=== PATIENT | female | born 1985 | race African-American/Black ===

== ENCOUNTER 2022-03-01 20:31 | Inpatient (IN) | payer OTHER ==
[2022-03-01] MEDS ORDERED: FUROSEMIDE 40 MG/4 ML INJECTABLE VIAL IVPUSH ONE (21:35)
[2022-03-01] MEDS ORDERED: ACETAMINOPHEN 1000 MG/100 ML BAG IVPB ONE (21:36)
[2022-03-01] MEDS: ALBUTEROL SO4 2.5/IPRATROPIUM 0.5 INH SOL 3 ML VIAL.NEB. NEB SCH ×3 (21:54→22:16)
[2022-03-01] MEDS ORDERED: FUROSEMIDE 40 MG/4 ML INJECTABLE VIAL ONE (21:55)
[2022-03-01] MEDS ORDERED: ACETAMINOPHEN INJECTION 100 ML IVPB ONE (21:59)
[2022-03-01] MEDS ORDERED: ALBUTEROL SO4 2.5/IPRATROPIUM 0.5 INH SOL 3 ML VIAL.NEB. NEB ONE (21:59)
[2022-03-01 22:43] LABS: BASO % 0.2 % (0-2.0); EOS % 2.6 % (0-4.5); HEMATOCRIT 43.4 % (32.4-45.2); LYMPH % 8.5 % (8-40); MCH 26.4 pg (25.7-33.7); MCHC 32.3 g/dl (32.0-36.0); MEAN CELL VOLUME 81.8 fl (80-96); MEAN PLT VOLUME 8.6 fl (7.5-11.1); MONO % 5.5 % (3.8-10.2); NEUT % 83.2 % (42.8-82.8); PLATELET COUNT 243 10^3/uL (134-434); RBC 5.31 M/mm3 (3.60-5.2); RDW 16.4 % (11.6-15.6); WHITE BLOOD COUNT 9.9 K/mm3 (4.0-10.0)
[2022-03-01 23:01] LABS: CALCIUM 8.7 mg/dL (8.5-10.1)
[2022-03-01 23:02] LABS: ALBUMIN 3.1 g/dl (3.4-5.0); BLOOD UREA NITROGEN 15.2 mg/dL (7-18)
[2022-03-01 23:05] LABS: CREATININE 1.7 mg/dL (0.55-1.3)
[2022-03-01 23:07] LABS: BILIRUBIN,TOTAL 0.4 mg/dL (0.2-1); TOT PROT 7.8 g/dl (6.4-8.2)
[2022-03-01] MEDS ORDERED: amLODIPine BESYLATE 10 MG TABLET (FP) PO ONE (23:51)
[2022-03-01] MEDS ORDERED: methylPREDNISolone NA SUCC 125 MG/2 ML VIAL IVPB ONE (23:51)
[2022-03-01] MEDS ORDERED: ALBUTEROL SO4 0.083% IH SOL 2.5 MG/3 ML VIAL.NEB. NEB ONE (23:51)
[2022-03-02] MEDS ORDERED: ALBUTEROL SO4 2.5/IPRATROPIUM 0.5 INH SOL 3 ML VIAL.NEB. NEB ONE ×3 (00:35→08:25)
[2022-03-02] MEDS ORDERED: amLODIPine BESYLATE 10 MG TABLET (FP) ONE ×2 (00:35→08:51)
[2022-03-02] MEDS ORDERED: methylPREDNISolone NA SUCC 125 MG/2 ML VIAL ONE (00:36)
[2022-03-02] MEDS ORDERED: AZITHROMYCIN 250 MG TABLET PO ONE (02:38)
[2022-03-02] MEDS ORDERED: ALBUTEROL SO4 2.5/IPRATROPIUM 0.5 INH SOL 3 ML VIAL.NEB. NEB PRN (02:46)
[2022-03-02] MEDS ORDERED: AZITHROMYCIN 500 MG TABLET ONE (05:52)
[2022-03-02] MEDS ORDERED: HEPARIN NA (PORCINE) 5,000 UNITS/ML 1ML VIAL ONE (05:53)
[2022-03-02] MEDS ORDERED: HEPARIN NA (PORCINE) 5,000 UNITS/ML 1ML VIAL SQ SCH (06:00)
[2022-03-02 07:09] LABS: HEMATOCRIT 44.5 % (32.4-45.2); HEMOGLOBIN 14.4 GM/dL (10.7-15.3); MCH 26.6 pg (25.7-33.7); MCHC 32.3 g/dl (32.0-36.0); MEAN CELL VOLUME 82.3 fl (80-96); MEAN PLT VOLUME 8.6 fl (7.5-11.1); PLATELET COUNT 235 10^3/uL (134-434); RDW 16.6 % (11.6-15.6); WHITE BLOOD COUNT 9.5 K/mm3 (4.0-10.0)
[2022-03-02 07:22] LABS: ALBUMIN 3.2 g/dl (3.4-5.0); BLOOD UREA NITROGEN 17.9 mg/dL (7-18); MAGNESIUM 2.2 mg/dL (1.8-2.4)
[2022-03-02 07:24] LABS: PHOSPHOROUS 3.1 mg/dL (2.5-4.9)
[2022-03-02 07:25] LABS: CREATININE 1.7 mg/dL (0.55-1.3)
[2022-03-02 07:26] LABS: BILIRUBIN,TOTAL 0.4 mg/dL (0.2-1); TOT PROT 8.2 g/dl (6.4-8.2)
[2022-03-02] MEDS ORDERED: hydrALAZINE HCL 20 MG/ML VIAL IVPUSH ONE (08:43)
[2022-03-02 08:48] LABS: ANISOCYTOSIS 0; HELMET CELLS 0; HOWELL-JOLLY BODIES 0; MACROCYTOSIS 0; OVALOCYTE 0; ROULEAU 0; SICKELED CELLS 0; TARGET CELLS 0; TEAR DROP CELLS 0; TOXIC GRANULATION 0
[2022-03-02] MEDS ORDERED: hydrALAZINE HCL 20 MG/ML VIAL ONE (08:48)
[2022-03-02] MEDS ORDERED: hydrALAZINE HCL 50 MG TABLET (FP) ONE (08:51)
[2022-03-02] MEDS ORDERED: FUROSEMIDE 40 MG/4 ML INJECTABLE VIAL ONE (08:52)
[2022-03-02] MEDS ORDERED: methylPREDNISolone NA SUCC 40 MG/1 ML VIAL ONE (08:52)
[2022-03-02] MEDS: methylPREDNISolone NA SUCC 40 MG/1 ML VIAL IVPUSH SCH ×2 (09:10→17:41)
[2022-03-02] MEDS: hydrALAZINE HCL 50 MG TABLET (FP) PO SCH ×2 (09:10→22:04)
[2022-03-02] MEDS: amLODIPine BESYLATE 10 MG TABLET (FP) PO SCH (09:10)
[2022-03-02] MEDS ORDERED: FUROSEMIDE 40 MG/4 ML INJECTABLE VIAL IVPUSH SCH (10:00)
[2022-03-02] MEDS ORDERED: AZITHROMYCIN 250 MG TABLET PO SCH (10:00)
[2022-03-02] MEDS ORDERED: hydrALAZINE HCL 25 MG TABLET (FP) PO SCH (10:00)
[2022-03-02] MEDS ORDERED: ENOXAPARIN NA (PORCINE) 100 MG/1 ML DISP.SYRIN SQ ONE (10:29)
[2022-03-02] MEDS: ENOXAPARIN NA (PORCINE) 100 MG/1 ML DISP.SYRIN SQ SCH ×2 (10:38→22:04)
[2022-03-02] MEDS ORDERED: ALBUTEROL SO4 0.083% IH SOL 2.5 MG/3 ML VIAL.NEB. NEB PRN (12:44)
[2022-03-02] MEDS: ALBUTEROL SO4 2.5/IPRATROPIUM 0.5 INH SOL 3 ML VIAL.NEB. NEB SCH ×2 (13:01→20:10)
[2022-03-02 15:18] VITALS: BMI 36.6
[2022-03-02] MEDS: MONTELUKAST NA 10 MG TABLET PO SCH (22:04)
[2022-03-02] MEDS: MOMETASONE FUROATE 220 MCG/IH INHALER IH SCH (22:39)
[2022-03-03] MEDS: methylPREDNISolone NA SUCC 40 MG/1 ML VIAL IVPUSH SCH ×4 (02:52→22:08)
[2022-03-03] MEDS: ALBUTEROL SO4 2.5/IPRATROPIUM 0.5 INH SOL 3 ML VIAL.NEB. NEB SCH ×3 (07:45→20:02)
[2022-03-03] MEDS: hydrALAZINE HCL 50 MG TABLET (FP) PO SCH ×5 (07:45→16:56)
[2022-03-03] MEDS: amLODIPine BESYLATE 10 MG TABLET (FP) PO SCH ×2 (07:46→11:21)
[2022-03-03 08:12] LABS: HEMATOCRIT 45.6 % (32.4-45.2); MCH 25.8 pg (25.7-33.7); MCHC 30.8 g/dl (32.0-36.0); MEAN CELL VOLUME 83.7 fl (80-96); MEAN PLT VOLUME 9.5 fl (7.5-11.1); PLATELET COUNT 280 10^3/uL (134-434); RBC 5.44 M/mm3 (3.60-5.2); RDW 16.6 % (11.6-15.6); WHITE BLOOD COUNT 16.9 K/mm3 (4.0-10.0)
[2022-03-03 09:06] LABS: ALBUMIN 3.1 g/dl (3.4-5.0); CALCIUM 9.3 mg/dL (8.5-10.1); MAGNESIUM 2.5 mg/dL (1.8-2.4)
[2022-03-03 09:09] LABS: CREATININE 2.2 mg/dL (0.55-1.3)
[2022-03-03 09:11] LABS: BILIRUBIN,TOTAL 0.2 mg/dL (0.2-1); TOT PROT 8.2 g/dl (6.4-8.2)
[2022-03-03] MEDS ORDERED: ACETAMINOPHEN 325 MG TABLET (FP) PO PRN (09:12)
[2022-03-03] MEDS ORDERED: FUROSEMIDE 40 MG TABLET (FP) PO SCH (10:00)
[2022-03-03 10:14] LABS: ANISOCYTOSIS 0; HELMET CELLS 0; HOWELL-JOLLY BODIES 0; MACROCYTOSIS 0; OVALOCYTE 0; ROULEAU 0; SICKELED CELLS 0; TARGET CELLS 0; TEAR DROP CELLS 0; TOXIC GRANULATION 0
[2022-03-03] MEDS: ENOXAPARIN NA (PORCINE) 40 MG/0.4 ML DISP.SYRIN SQ SCH (11:06)
[2022-03-03] MEDS: AZITHROMYCIN IVPB 500 MG/250 ML BAG IVPB SCH (11:07)
[2022-03-03] MEDS ORDERED: BUDESONIDE/FORMETEROL FUMARATE 80/4.5 mcg INHALER IH SCH (11:30)
[2022-03-03] MEDS: MOMETASONE FUROATE 220 MCG/IH INHALER IH SCH (22:10)
[2022-03-03] MEDS: MONTELUKAST NA 10 MG TABLET PO SCH (22:13)
[2022-03-04] MEDS ORDERED: FAMOTIDINE 20 MG/50 ML IVPB 20 MG/50 ML MG IVPB ONE ×2 (02:26→03:45)
[2022-03-04] MEDS: methylPREDNISolone NA SUCC 40 MG/1 ML VIAL IVPUSH SCH ×4 (03:53→22:48)
[2022-03-04] MEDS: hydrALAZINE HCL 50 MG TABLET (FP) PO SCH ×3 (06:24→22:48)
[2022-03-04] MEDS: ALBUTEROL SO4 2.5/IPRATROPIUM 0.5 INH SOL 3 ML VIAL.NEB. NEB SCH ×3 (07:25→20:08)
[2022-03-04 07:55] LABS: HEMATOCRIT 43.7 % (32.4-45.2); HEMOGLOBIN 13.5 GM/dL (10.7-15.3); MCH 25.6 pg (25.7-33.7); MEAN CELL VOLUME 82.5 fl (80-96); MEAN PLT VOLUME 9.5 fl (7.5-11.1); PLATELET COUNT 282 10^3/uL (134-434); RBC 5.29 M/mm3 (3.60-5.2); RDW 16.9 % (11.6-15.6); WHITE BLOOD COUNT 19.1 K/mm3 (4.0-10.0)
[2022-03-04 08:42] LABS: ALBUMIN 2.9 g/dl (3.4-5.0); CALCIUM 8.8 mg/dL (8.5-10.1); MAGNESIUM 2.6 mg/dL (1.8-2.4)
[2022-03-04 08:45] LABS: CREATININE 2.2 mg/dL (0.55-1.3)
[2022-03-04 08:47] LABS: BILIRUBIN,TOTAL 0.2 mg/dL (0.2-1); TOT PROT 7.5 g/dl (6.4-8.2)
[2022-03-04 08:53] LABS: ANISOCYTOSIS 0; HELMET CELLS 0; HOWELL-JOLLY BODIES 0; MACROCYTOSIS 0; OVALOCYTE 0; ROULEAU 0; SICKELED CELLS 0; TARGET CELLS 0; TEAR DROP CELLS 0; TOXIC GRANULATION 0
[2022-03-04] MEDS: AZITHROMYCIN IVPB 500 MG/250 ML BAG IVPB SCH (09:54)
[2022-03-04] MEDS: ENOXAPARIN NA (PORCINE) 40 MG/0.4 ML DISP.SYRIN SQ SCH (09:54)
[2022-03-04] MEDS: amLODIPine BESYLATE 10 MG TABLET (FP) PO SCH (09:55)
[2022-03-04] MEDS: TIOTROPIUM BROMIDE 2.5 MCG (SPIRIVA) RESPIMAT INHALER IH SCH (10:17)
[2022-03-04] MEDS: PANTOPRAZOLE 40 MG TABLET PO SCH (14:30)
[2022-03-04] MEDS: MONTELUKAST NA 10 MG TABLET PO SCH (22:47)
[2022-03-04] MEDS: MOMETASONE FUROATE 220 MCG/IH INHALER IH SCH (22:56)
[2022-03-05] MEDS: methylPREDNISolone NA SUCC 40 MG/1 ML VIAL IVPUSH SCH ×3 (03:21→15:07)
[2022-03-05] MEDS: hydrALAZINE HCL 50 MG TABLET (FP) PO SCH ×2 (06:27→14:23)
[2022-03-05 06:32] VITALS: RESP 20
[2022-03-05 07:44] LABS: CALCIUM 8.6 mg/dL (8.5-10.1)
[2022-03-05 07:46] LABS: MAGNESIUM 2.7 mg/dL (1.8-2.4)
[2022-03-05 07:47] LABS: ALBUMIN 2.7 g/dl (3.4-5.0); BLOOD UREA NITROGEN 43.4 mg/dL (7-18); HEMATOCRIT 41.8 % (32.4-45.2); MCH 25.9 pg (25.7-33.7); MEAN CELL VOLUME 83.5 fl (80-96); MEAN PLT VOLUME 9.2 fl (7.5-11.1); PLATELET COUNT 228 10^3/uL (134-434)
[2022-03-05 07:50] LABS: BILIRUBIN,TOTAL 0.3 mg/dL (0.2-1); TOT PROT 6.7 g/dl (6.4-8.2)
[2022-03-05] MEDS: ALBUTEROL SO4 2.5/IPRATROPIUM 0.5 INH SOL 3 ML VIAL.NEB. NEB SCH ×2 (08:25→15:00)
[2022-03-05] MEDS: ENOXAPARIN NA (PORCINE) 40 MG/0.4 ML DISP.SYRIN SQ SCH (09:08)
[2022-03-05] MEDS: AZITHROMYCIN IVPB 500 MG/250 ML BAG IVPB SCH (09:08)
[2022-03-05] MEDS: amLODIPine BESYLATE 10 MG TABLET (FP) PO SCH (09:08)
[2022-03-05] MEDS: PANTOPRAZOLE 40 MG TABLET PO SCH (09:08)
[2022-03-05] MEDS: TIOTROPIUM BROMIDE 2.5 MCG (SPIRIVA) RESPIMAT INHALER IH SCH (10:04)
[2022-03-05 10:35] LABS: ANISOCYTOSIS 0; HELMET CELLS 0; HOWELL-JOLLY BODIES 0; MACROCYTOSIS 0; OVALOCYTE 0; ROULEAU 0; SICKELED CELLS 0; TARGET CELLS 0; TEAR DROP CELLS 0; TOXIC GRANULATION 0
[2022-03-05] MEDS ORDERED: FUROSEMIDE 40 MG TABLET (FP) PO ONE (12:30)
[2022-03-05 15:39] VITALS: BP 149/72; PULSE 79; TEMP 98.8
== END 2022-03-05 18:16 | disposition home or self-care (01) | DRG 202 ==
LOC: JER 20:31 → UNDOADMOB 23:51 → JERBED 23:51 → INTOOBSV 23:51 → J4W 03-02 14:56 → JERBED 03-02 14:56 → J4W 03-02 15:08 → OBSVTOIN 03-04 13:37
PROVIDERS: ADMIT Internal Medicine; ATTEND Nurse Practitioner Family
DX: J45.901 Unspecified asthma with (acute) exacerbation (principal); J96.01 Acute respiratory failure with hypoxia; I13.0 Hypertensive heart and chronic kidney disease with heart failure and stage 1 through stage 4 chronic kidney disease, or unspecified chronic kidney disease; I42.8 Other cardiomyopathies; N17.9 Acute kidney failure, unspecified; I50.22 Chronic systolic (congestive) heart failure; E66.9 Obesity, unspecified; Z68.35 Body mass index [BMI] 35.0-35.9, adult; Z91.14 Patient's other noncompliance with medication regimen; N18.9 Chronic kidney disease, unspecified; F17.210 Nicotine dependence, cigarettes, uncomplicated; J06.9 Acute upper respiratory infection, unspecified; G47.30 Sleep apnea, unspecified; D17.71 Benign lipomatous neoplasm of kidney
CPT/HCPCS: 36415; 71045-TC-FY; 76775-TC; 80053; 82570; 82962; 83735; 84100; 84156; 84300; 84484; 84703; 85025; 85379; 87804; 87807; 93005; 93010; 93306-TC; 93970-TC; 94010; 94150; 94640; 94660; 94761; 99285-25; C9803-CS; G0378; J1644; U0003; U0005

== ENCOUNTER 2023-06-07 08:11 | Inpatient (IN) | payer OTHER ==
[2023-06-07] MEDS ORDERED: methylPREDNISolone NA SUCC 125 MG/2 ML VIAL IVPB ONE (08:38)
[2023-06-07] MEDS ORDERED: ALBUTEROL SO4 2.5/IPRATROPIUM 0.5 INH SOL 3 ML VIAL.NEB. NEB ONE ×7 (08:38→09:55)
[2023-06-07] MEDS ORDERED: methylPREDNISolone NA SUCC 125 MG/2 ML VIAL ONE (08:47)
[2023-06-07 09:05] LABS: BASO % 0.5 % (0-2.0); EOS % 4.8 % (0-4.5); HEMATOCRIT 41.4 % (32.4-45.2); HEMOGLOBIN 14.2 GM/dL (10.7-15.3); LYMPH % 17.7 % (8-40); MCH 31.2 pg (25.7-33.7); MCHC 34.4 g/dl (32.0-36.0); MEAN CELL VOLUME 90.8 fl (80-96); MEAN PLT VOLUME 9.3 fl (7.5-11.1); MONO % 5.6 % (3.8-10.2); NEUT % 71.4 % (42.8-82.8); PLATELET COUNT 190 10^3/uL (134-434); RBC 4.56 M/mm3 (3.60-5.2); RDW 19.2 % (11.6-15.6); WHITE BLOOD COUNT 6.6 K/mm3 (4.0-10.0)
[2023-06-07 09:20] LABS: POTASSIUM 4.1 mmol/L (3.5-5.1)
[2023-06-07 09:22] LABS: CALCIUM 9.3 mg/dL (8.5-10.1)
[2023-06-07 09:23] LABS: BLOOD UREA NITROGEN 18.9 mg/dL (7-18)
[2023-06-07 09:25] LABS: CREATININE 1.9 mg/dL (0.55-1.3)
[2023-06-07 09:27] LABS: BILIRUBIN,TOTAL 0.3 mg/dL (0.2-1); TOT PROT 7.5 g/dl (6.4-8.2)
[2023-06-07 09:31] LABS: N-TERMINAL BNP 816.2 pg/ml (5-125)
[2023-06-07] MEDS ORDERED: MAGNESIUM SULFATE IN WATER 2 GM/50 ML IVPB IVPB ONE ×2 (09:41→10:34)
[2023-06-07] MEDS ORDERED: ALBUTEROL SO4 HFA INHALER IH PRN (13:48)
[2023-06-07] MEDS ORDERED: FUROSEMIDE 40 MG TABLET (FP) ONE (14:08)
[2023-06-07] MEDS ORDERED: amLODIPine BESYLATE 10 MG TABLET (FP) ONE (14:09)
[2023-06-07] MEDS: amLODIPine BESYLATE 10 MG TABLET (FP) PO SCH (14:15)
[2023-06-07] MEDS: FUROSEMIDE 40 MG TABLET (FP) PO SCH (14:15)
[2023-06-07] MEDS: CALCITRIOL 0.25 MCG CAPSULE (FP) PO SCH (16:11)
[2023-06-07] MEDS: ALBUTEROL SO4 2.5/IPRATROPIUM 0.5 INH SOL 3 ML VIAL.NEB. NEB SCH ×2 (16:49→20:18)
[2023-06-07] MEDS: methylPREDNISolone NA SUCC 40 MG/1 ML VIAL IVPUSH SCH (19:06)
[2023-06-07] MEDS: HEPARIN NA (PORCINE) 5,000 UNITS/ML 1ML VIAL SQ SCH (22:27)
[2023-06-07] MEDS: hydrALAZINE HCL 50 MG TABLET (FP) PO SCH (22:27)
[2023-06-08] MEDS: methylPREDNISolone NA SUCC 40 MG/1 ML VIAL IVPUSH SCH ×3 (01:33→17:06)
[2023-06-08] MEDS ORDERED: hydrALAZINE HCL 25 MG TABLET (FP) PO ONE (05:24)
[2023-06-08] MEDS: HEPARIN NA (PORCINE) 5,000 UNITS/ML 1ML VIAL SQ SCH ×3 (05:58→21:33)
[2023-06-08] MEDS: ALBUTEROL SO4 2.5/IPRATROPIUM 0.5 INH SOL 3 ML VIAL.NEB. NEB SCH ×4 (08:00→20:06)
[2023-06-08] MEDS: FUROSEMIDE 40 MG TABLET (FP) PO SCH (09:02)
[2023-06-08] MEDS: CALCITRIOL 0.25 MCG CAPSULE (FP) PO SCH (09:02)
[2023-06-08] MEDS: amLODIPine BESYLATE 10 MG TABLET (FP) PO SCH (09:02)
[2023-06-08 09:52] LABS: HEMATOCRIT 42.7 % (32.4-45.2); HEMOGLOBIN 14.3 GM/dL (10.7-15.3); MCH 30.7 pg (25.7-33.7); MCHC 33.6 g/dl (32.0-36.0); MEAN CELL VOLUME 91.4 fl (80-96); MEAN PLT VOLUME 9.8 fl (7.5-11.1); PLATELET COUNT 269 10^3/uL (134-434); RBC 4.68 M/mm3 (3.60-5.2); RDW 19.3 % (11.6-15.6); WHITE BLOOD COUNT 16.8 K/mm3 (4.0-10.0)
[2023-06-08] MEDS ORDERED: ENOXAPARIN NA (PORCINE) 40 MG/0.4 ML DISP.SYRIN SQ SCH (10:00)
[2023-06-08] MEDS: hydrALAZINE HCL 50 MG TABLET (FP) PO SCH ×3 (10:11→21:31)
[2023-06-08 10:23] LABS: POTASSIUM 4.2 mmol/L (3.5-5.1)
[2023-06-08 10:28] LABS: BLOOD UREA NITROGEN 35.2 mg/dL (7-18)
[2023-06-08 10:29] LABS: CALCIUM 9.3 mg/dL (8.5-10.1)
[2023-06-08 10:30] LABS: MAGNESIUM 2.6 mg/dL (1.8-2.4)
[2023-06-08 10:33] LABS: PHOSPHOROUS 3.4 mg/dL (2.5-4.9); TOT PROT 7.6 g/dl (6.4-8.2)
[2023-06-08 10:34] LABS: BILIRUBIN,TOTAL 0.3 mg/dL (0.2-1); CREATININE 1.8 mg/dL (0.55-1.3)
[2023-06-08 10:43] LABS: ANISOCYTOSIS 1+; MACROCYTOSIS 1+
[2023-06-08] MEDS: guaiFENesin/D-METHORPHAN HB 10 ML UNIT-DOSE CUPS PO PRN (11:13)
[2023-06-08] MEDS: PANTOPRAZOLE 40 MG TABLET PO SCH (14:00)
[2023-06-08] MEDS: BUDESONIDE/FORMETEROL FUMARATE 160/4.5 mcg INHALER IH SCH (22:17)
[2023-06-09] MEDS: methylPREDNISolone NA SUCC 40 MG/1 ML VIAL IVPUSH SCH ×3 (02:38→17:20)
[2023-06-09] MEDS: HEPARIN NA (PORCINE) 5,000 UNITS/ML 1ML VIAL SQ SCH ×3 (06:12→21:45)
[2023-06-09] MEDS: hydrALAZINE HCL 50 MG TABLET (FP) PO SCH ×3 (06:12→21:42)
[2023-06-09] MEDS: ALBUTEROL SO4 2.5/IPRATROPIUM 0.5 INH SOL 3 ML VIAL.NEB. NEB SCH ×4 (07:15→20:05)
[2023-06-09] MEDS: guaiFENesin/D-METHORPHAN HB 10 ML UNIT-DOSE CUPS PO PRN (09:03)
[2023-06-09] MEDS: CALCITRIOL 0.25 MCG CAPSULE (FP) PO SCH (09:04)
[2023-06-09] MEDS: amLODIPine BESYLATE 10 MG TABLET (FP) PO SCH (09:04)
[2023-06-09] MEDS: PANTOPRAZOLE 40 MG TABLET PO SCH (09:04)
[2023-06-09] MEDS: FUROSEMIDE 40 MG TABLET (FP) PO SCH (09:04)
[2023-06-09] MEDS: BUDESONIDE/FORMETEROL FUMARATE 160/4.5 mcg INHALER IH SCH ×2 (09:05→21:42)
[2023-06-09 09:23] LABS: HEMOGLOBIN 13.6 GM/dL (10.7-15.3); MCH 31.7 pg (25.7-33.7); MCHC 33.9 g/dl (32.0-36.0); MEAN CELL VOLUME 93.3 fl (80-96); MEAN PLT VOLUME 9.8 fl (7.5-11.1); PLATELET COUNT 273 10^3/uL (134-434); RBC 4.29 M/mm3 (3.60-5.2); WHITE BLOOD COUNT 16.3 K/mm3 (4.0-10.0)
[2023-06-09 09:49] LABS: POTASSIUM 4.4 mmol/L (3.5-5.1)
[2023-06-09 09:50] LABS: CALCIUM 8.7 mg/dL (8.5-10.1)
[2023-06-10] MEDS: guaiFENesin/D-METHORPHAN HB 10 ML UNIT-DOSE CUPS PO PRN ×2 (00:31→09:16)
[2023-06-10] MEDS: methylPREDNISolone NA SUCC 40 MG/1 ML VIAL IVPUSH SCH ×3 (02:10→17:08)
[2023-06-10] MEDS: hydrALAZINE HCL 50 MG TABLET (FP) PO SCH ×3 (06:25→21:43)
[2023-06-10] MEDS: HEPARIN NA (PORCINE) 5,000 UNITS/ML 1ML VIAL SQ SCH ×3 (06:26→21:44)
[2023-06-10] MEDS: ALBUTEROL SO4 2.5/IPRATROPIUM 0.5 INH SOL 3 ML VIAL.NEB. NEB SCH ×4 (08:08→20:30)
[2023-06-10] MEDS: CALCITRIOL 0.25 MCG CAPSULE (FP) PO SCH (09:15)
[2023-06-10] MEDS: amLODIPine BESYLATE 10 MG TABLET (FP) PO SCH (09:15)
[2023-06-10] MEDS: PANTOPRAZOLE 40 MG TABLET PO SCH (09:15)
[2023-06-10] MEDS: BUDESONIDE/FORMETEROL FUMARATE 160/4.5 mcg INHALER IH SCH ×2 (09:16→21:46)
[2023-06-10 11:04] LABS: HEMATOCRIT 39.9 % (32.4-45.2); HEMOGLOBIN 13.8 GM/dL (10.7-15.3); MCH 32.5 pg (25.7-33.7); MCHC 34.6 g/dl (32.0-36.0); MEAN CELL VOLUME 93.8 fl (80-96); MEAN PLT VOLUME 9.7 fl (7.5-11.1); PLATELET COUNT 237 10^3/uL (134-434); RBC 4.25 M/mm3 (3.60-5.2); RDW 19.5 % (11.6-15.6); WHITE BLOOD COUNT 14.4 K/mm3 (4.0-10.0)
[2023-06-10 11:16] LABS: POTASSIUM 4.4 mmol/L (3.5-5.1)
[2023-06-10 11:21] LABS: BLOOD UREA NITROGEN 32.6 mg/dL (7-18); CALCIUM 8.8 mg/dL (8.5-10.1)
[2023-06-10 11:24] LABS: CREATININE 2.1 mg/dL (0.55-1.3)
[2023-06-10 22:58] LABS: EPI CELLS >36 /uL (0-25.1); HYALINE CASTS 1 /uL (0-3.1); PH,URINE 5.5 (5.0-8.0); URINE APPEARANCE CLEAR; URINE BACTERIA 401 /uL (0-1359); URINE BILIRUBIN NEGATIVE (NEGATIVE); URINE COLOR YELLOW; URINE GLUCOSE (UA) 3+ (NEGATIVE); URINE KETONE NEGATIVE (NEGATIVE); URINE LEUK ESTERASE NEGATIVE (NEGATIVE); URINE NITRITE NEGATIVE (NEGATIVE); URINE PROTEIN 1+ (NEGATIVE); URINE UROBILINOGEN 0.2 mg/dL (0.2-1.0); URINE WBC 43 /uL (0-25.8)
[2023-06-10 23:30] VITALS: BMI 38.5
[2023-06-11] MEDS: methylPREDNISolone NA SUCC 40 MG/1 ML VIAL IVPUSH SCH ×3 (01:29→19:19)
[2023-06-11] MEDS: HEPARIN NA (PORCINE) 5,000 UNITS/ML 1ML VIAL SQ SCH ×3 (05:11→21:02)
[2023-06-11] MEDS: hydrALAZINE HCL 50 MG TABLET (FP) PO SCH (05:11)
[2023-06-11] MEDS: ALBUTEROL SO4 2.5/IPRATROPIUM 0.5 INH SOL 3 ML VIAL.NEB. NEB SCH ×4 (08:18→20:32)
[2023-06-11] MEDS: PANTOPRAZOLE 40 MG TABLET PO SCH (09:26)
[2023-06-11] MEDS: CALCITRIOL 0.25 MCG CAPSULE (FP) PO SCH (09:26)
[2023-06-11] MEDS: BUDESONIDE/FORMETEROL FUMARATE 160/4.5 mcg INHALER IH SCH ×2 (09:26→21:04)
[2023-06-11] MEDS: amLODIPine BESYLATE 10 MG TABLET (FP) PO SCH (09:26)
[2023-06-11 11:35] LABS: POTASSIUM 4.5 mmol/L (3.5-5.1)
[2023-06-11 11:42] LABS: ALBUMIN 2.8 g/dl (3.4-5.0); BLOOD UREA NITROGEN 33.5 mg/dL (7-18); CALCIUM 9.2 mg/dL (8.5-10.1)
[2023-06-11 11:43] LABS: CREATININE 2.1 mg/dL (0.55-1.3)
[2023-06-11 11:45] LABS: BILIRUBIN,TOTAL 0.2 mg/dL (0.2-1); TOT PROT 7.1 g/dl (6.4-8.2)
[2023-06-11] MEDS ORDERED: hydrALAZINE HCL 50 MG TABLET (FP) PO SCH (13:33)
[2023-06-12] MEDS: methylPREDNISolone NA SUCC 40 MG/1 ML VIAL IVPUSH SCH (01:45)
[2023-06-12] MEDS: HEPARIN NA (PORCINE) 5,000 UNITS/ML 1ML VIAL SQ SCH ×2 (06:46→14:18)
[2023-06-12] MEDS: ALBUTEROL SO4 2.5/IPRATROPIUM 0.5 INH SOL 3 ML VIAL.NEB. NEB SCH ×3 (07:53→16:42)
[2023-06-12] MEDS ORDERED: methylPREDNISolone NA SUCC 40 MG/1 ML VIAL IVPUSH SCH (10:00)
[2023-06-12 10:02] LABS: HEMOGLOBIN 14.2 GM/dL (10.7-15.3); MCH 29.6 pg (25.7-33.7); MCHC 32.3 g/dl (32.0-36.0); MEAN CELL VOLUME 91.7 fl (80-96); MEAN PLT VOLUME 9.6 fl (7.5-11.1); PLATELET COUNT 247 10^3/uL (134-434); RBC 4.79 M/mm3 (3.60-5.2); RDW 19.6 % (11.6-15.6); WHITE BLOOD COUNT 16.8 K/mm3 (4.0-10.0)
[2023-06-12] MEDS: CALCITRIOL 0.25 MCG CAPSULE (FP) PO SCH (10:11)
[2023-06-12] MEDS: amLODIPine BESYLATE 10 MG TABLET (FP) PO SCH (10:11)
[2023-06-12] MEDS: PANTOPRAZOLE 40 MG TABLET PO SCH (10:11)
[2023-06-12] MEDS: BUDESONIDE/FORMETEROL FUMARATE 160/4.5 mcg INHALER IH SCH (10:18)
[2023-06-12 10:39] LABS: ANISOCYTOSIS 0; MACROCYTOSIS 0
[2023-06-12 10:45] LABS: POTASSIUM 4.7 mmol/L (3.5-5.1)
[2023-06-12 11:02] LABS: BLOOD UREA NITROGEN 34.2 mg/dL (7-18)
[2023-06-12 11:03] LABS: ALBUMIN 2.9 g/dl (3.4-5.0); CALCIUM 9.2 mg/dL (8.5-10.1)
[2023-06-12 11:07] LABS: TOT PROT 7.2 g/dl (6.4-8.2)
[2023-06-12 11:09] LABS: BILIRUBIN,TOTAL 0.5 mg/dL (0.2-1)
[2023-06-12 16:21] VITALS: BP 152/83; PULSE 85; RESP 18; TEMP 98.3
== END 2023-06-12 18:29 | disposition home or self-care (01) | DRG 202 ==
LOC: JER 08:11 → JERFT 08:11 → JERBED 13:03 → J5S 15:30
PROVIDERS: ADMIT Internal Medicine; ATTEND Internal Medicine
DX: J45.51 Severe persistent asthma with (acute) exacerbation (principal); J96.01 Acute respiratory failure with hypoxia; N17.9 Acute kidney failure, unspecified; I10 Essential (primary) hypertension; G47.33 Obstructive sleep apnea (adult) (pediatric); I12.9 Hypertensive chronic kidney disease with stage 1 through stage 4 chronic kidney disease, or unspecified chronic kidney disease; N18.9 Chronic kidney disease, unspecified
CPT/HCPCS: 0241U-QW; 36415; 71046-TC-FY; 76775-TC; 80048; 80053; 81003; 82570; 83036; 83735; 83880; 84100; 84156; 85025; 85027; 93005; 93010; 94640; 94660; 99285-25; J1644